=== PATIENT | female | born 1960 | race Caucasian/White ===

== ENCOUNTER 2016-10-10 02:12 | Emergency (ER) | payer BC, OTHER ==
[2016-10-10] MEDS ORDERED: Ketorolac 30 MG/ML SDV IVPUSH ONE (02:29)
[2016-10-10] MEDS ORDERED: Ondansetron 4 MG/2 ML SDV IVPUSH ONE (02:29)
[2016-10-10] MEDS ORDERED: Pantoprazole 40 MG Vial IVPUSH ONE (02:29)
[2016-10-10] MEDS ORDERED: Sodium Chloride 0.9% 1,000 ML IV SCH (02:30)
[2016-10-10] MEDS ORDERED: Ondansetron 4 MG Tab.DIS PO ONE (03:51)
[2016-10-10 04:04] VITALS: BP 122/72
--- NOTE | 2016-10-10 05:11 | ER ---
DATE SEEN: 10/10/2016 CHIEF COMPLAINT: Abdominal pain. HISTORY OF PRESENT ILLNESS: This is a 56-year-old female with abdominal pain since last evening, bloating in nature in the epigastrium, mild to moderate, associated with vomiting. REVIEW OF SYSTEMS: No constipation, fever, or chills. No urinary symptoms. PAST SURGICAL HISTORY: Gallbladder surgery and hysterectomy. She has had a colonoscopy five years ago that was normal. ALLERGIES: Morphine and Orudis. SOCIAL HISTORY: She does drink alcohol, last time drank Saturday. PHYSICAL EXAMINATION: GENERAL: She is nontoxic. VITAL SIGNS: Afebrile. Blood pressure and temperature within reference range. ENT: Negative. CHEST: Clear. ABDOMEN: Soft, mildly distended. Tenderness to the epigastrium. No rebound or rigidity was noted. LABORATORY DATA: Initial white cell count is normal. Hemoglobin is normal. FINAL IMPRESSION: Gastritis, acute. PLAN: 1 L of normal saline. Zofran, ketorolac, and Protonix. She will go home on Zofran 4 mg q.i.d. p.r.n. FOLLOWUP: Follow up in the office tomorrow, return with any worsening symptoms. /[id number] NATHAN/HUGO
== END 2016-10-10 04:00 | disposition home or self-care (01) ==
LOC: FB.ED 02:12
DX: K29.00 Acute gastritis without bleeding (principal); Z90.710 Acquired absence of both cervix and uterus
CPT/HCPCS: 80053; 81001; 82150; 85025; 96361; 96374; 96375; 99284; A9270; C9113; J1885; J2405; J7040

== ENCOUNTER 2017-06-02 19:49 | Emergency (ER) | payer OTHER ==
[2017-06-02] MEDS ORDERED: HYDROmorphone 2 MG/ML SDV IVPUSH ONE (20:26)
[2017-06-02] MEDS ORDERED: Sodium Chloride 0.9% 1,000 ML IV SCH (20:30)
[2017-06-02] MEDS ORDERED: Dextrose 5%-Lactated Ringers 1,000 ML IV SCH (20:30)
[2017-06-02] MEDS ORDERED: Sodium Chloride 0.9% 10 ML Syringe FLUSH PRN (20:31)
[2017-06-02] MEDS ORDERED: Ondansetron 4 MG/2 ML SDV IVPUSH ONE (20:32)
--- NOTE | 2017-06-03 16:46 | ER ---
DATE SEEN: 06/02/2017 TIME SEEN: The patient was seen at 2000 hours. HISTORY OF PRESENT ILLNESS: This 56-year-old woman comes in with history of onset for pain and vomiting. She has vomited 10 times since then. She arrived to the emergency room and was seen around 2000 hours. She was ill last night with symptoms of nausea. At 0100 hours, had increasing abdominal pain and started vomiting at 1600 hours this afternoon. At 0430 hours, she had a headache, was 9/10 in intensity. Initially, it was frontal, but now it is all over her head. She used ice packs with little resolution. Tylenol was minimal help. She was retching at 1600 hours along with this vomiting. Had chills. Denies fever, but has had decreased urine output. Last night, she ate at [employer] in [place], had hamburger with cheese-cheeseburger. did not get sick. She was with other people who ate, did not get sick also. PAST MEDICAL HISTORY: Cholecystectomy, tubal ligation, breast reduction. No history of renal stones. ALLERGIES: Erythromycin, morphine, rofecoxib. CURRENT MEDICATIONS: 1. Bupropion. 2. Citalopram. 3. Lorazepam for anxiety and depression. The patient has obesity with weight 220 pounds. REVIEW OF SYSTEMS: Otherwise negative. PHYSICAL EXAMINATION: VITAL SIGNS: Blood pressure 129/60, heart rate 79, respirations 18, oxygen saturation 100%, temperature is 98.2. GENERAL: The patient is in moderate discomfort. She is on her side. HEENT: Pharynx, mildly semidry oral mucosa. No erythema noted. Sinuses nontender. TMs are normal appearance. NECK: Supple. No thyromegaly or masses in neck. No cervical adenopathy. LUNGS: Clear without rales or rhonchi. HEART: S1, S2. No irregular rate and rhythm. ABDOMEN: Soft. No guarding. No rebound. Bowel sounds increased. No CVA percussion tenderness. PELVIC AND RECTAL: Not performed. EXTREMITIES: Lower extremities without tenderness. No edema. Deep tendon reflexes in upper and lower extremities hypoactive, but present. NEURO: Cranial nerves 2 through 12 intact. Gait appropriate. She feels weak when she stands up. No tachycardia. No postural hypertension with standing. 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 LABORATORY FINDINGS: Suggest a fairly benign course. White count is normal with a neutrophilic differential, 89 PMNs, 7 lymphs, 3 monos, and complete metabolic panel is relatively normal except for calcium is trace low as 8.4, AST 112, ALT 128, alkaline phosphatase 122. Troponin is less than 0.017 and albumin low. Calcium probably low on the basis of the albumin. DIAGNOSES: 1. She has diagnosis of food-induced gastroenteritis-food poisoning, probably Staphylococcal enterotoxin. 2. Obesity. 3. Abdominal pain secondary to dehydration and vomiting. Abdominal pain resolved with hydration in the ER. 4. Neutrophilia secondary to vomiting and spleen-induced margination. Amylase is normal. No signs of pancreatitis. PLAN: The patient received 1000 of normal saline and 500 plus D5 lactated Ringer's. Dismiss. Pain is markedly improved. She received 30 mg Toradol IV and she did not want any narcotics as it makes her goofy. She received 1 mg of Dilaudid IV and Zofran 8 mg IV. The patient dismissed to follow up with doctor in 24 hours if markedly worse. Gradually progress to increase diet as tolerated. Zofran dispensed 4 mg q.6 hours p.r.n. nausea. /[id number] DORA/HUGO
== END 2017-06-02 22:16 | disposition home or self-care (01) ==
LOC: FB.ED 19:49
DX: A05.9 Bacterial foodborne intoxication, unspecified (principal); E86.0 Dehydration; D72.0 Genetic anomalies of leukocytes; Z88.1 Allergy status to other antibiotic agents
CPT/HCPCS: 36415; 80053; 82150; 83605; 84484; 85025; 96361; 96374; 96375; 99284; J1170; J2405; J7040; J7042; J7050; J7030

== ENCOUNTER 2018-09-25 17:33 | Day surgery (SDC) | payer OTHER ==
[2018-09-25] MEDS ORDERED: Glycopyrrolate 0.2 MG/ML 5 ML MDV IV ONE (17:34)
[2018-09-25] MEDS ORDERED: Neostigmine Methylsulfate 10 MG/10 ML MDV IVPUSH ONE (17:34)
[2018-09-25] MEDS ORDERED: Lactated Ringers 1,000 ML IV ONE (17:34)
[2018-09-25] MEDS ORDERED: diphenhydrAMINE 50 MG/ML SDV IVPUSH ONE (17:34)
[2018-09-25] MEDS ORDERED: Ketorolac 30 MG/ML SDV IVPUSH ONE (17:34)
[2018-09-25] MEDS ORDERED: Dexamethasone 4 MG/ML 5 ML MDV IVPUSH ONE (17:34)
[2018-09-25] MEDS ORDERED: fentaNYL 100 MCG/2 ML SDV IV ONE (17:34)
[2018-09-25] MEDS ORDERED: Succinylcholine 200 MG/10 ML MDV IV ONE (17:34)
[2018-09-25] MEDS ORDERED: Propofol 200 MG/20 ML SDV IV ONE (17:34)
[2018-09-25] MEDS ORDERED: cefOXitin 2 GM Vial IVPUSH ONE (17:34)
[2018-09-25] MEDS ORDERED: HYDROmorphone 2 MG/ML SDV IVPUSH ONE (17:34)
[2018-09-25] MEDS ORDERED: Ondansetron 4 MG/2 ML SDV IVPUSH ONE (17:34)
[2018-09-25] MEDS ORDERED: Rocuronium 50 MG/5 ML Vial IVPUSH ONE (17:34)
[2018-09-25] MEDS ORDERED: Midazolam 1 MG/ML 2 ML SDV IV ONE (17:34)
[2018-09-25] MEDS ORDERED: Lactated Ringers 1,000 ML IV SCH (18:00)
--- NOTE | 2018-09-25 18:50 | PCM.PN ---
- General Info Date of Service: 09/25/18 Admission Dx/Problem (Free Text): Patient here for appendectomy - Patient Data Vitals - Most Recent: Last Vital Signs Temp 98.2 F 09/25/18 17:46 Pulse 67 09/25/18 17:46 Resp 16 09/25/18 17:46 BP 119/72 09/25/18 17:46 Pulse Ox 98 09/25/18 17:46 Weight - Most Recent: 222 lb 6.4 oz Med Orders - Current: Current Medications Lactated Ringer's (Ringers, Lactated) 1,000 mls @ 125 mls/hr IV ASDIRECTED [facility] Last Admin: 09/25/18 18:22 Dose: 125 mls/hr - Exam General: Alert, Oriented Lungs: Clear to Auscultation Cardiovascular: Regular Rate, Regular Rhythm GI/Abdominal Exam: Soft, Tender (on right side) Extremities: Non-Tender - Problem List Review Problem List Initiated/Reviewed/Updated: Yes - My Orders Last 24 Hours: My Active Orders 09/25/18 18:00 Lactated Ringers [Ringers, Lactated] 1,000 ml IV ASDIRECTED - Assessment Assessment:: Acute appendicitis - Plan Plan:: Appendectomy
[2018-09-25] MEDS ORDERED: Bupivacaine 0.5%/EPINEPHrine 1:200,000 50 ML MDV ONE (18:58)
[2018-09-25] MEDS ORDERED: Ondansetron 4 MG/2 ML SDV IVPUSH PRN (20:28)
[2018-09-25] MEDS ORDERED: Acetaminophen/HYDROcodone 325-5 MG Tab PO PRN (20:28)
--- NOTE | 2018-09-25 20:28 | PCM.OPNOTE ---
- General Post-Op/Procedure Note Date of Surgery/Procedure: 09/25/18 Operative Procedure(s): Laparoscopic Appendectomy Findings: Distal appendix was swollen and indurated Base of appendix and adjacent cecum normal Pre Op Diagnosis: Acute Appendicitis Post-Op Diagnosis: Same Anesthesia Technique: General ET Tube Primary Surgeon: Jayson Grigsby Pathology: Appendix EBL in mLs: 50 Complications: None Condition: Good
[2018-09-25] MEDS ORDERED: cefOXitin 2 GM in Sodium Chloride 0.9% 50 ML IV SCH (20:30)
[2018-09-25] MEDS ORDERED: LORazepam 0.5 MG Tab PO PRN (20:33)
[2018-09-25] MEDS: Lactated Ringers 1,000 ML IV SCH (22:33)
--- NOTE | 2018-09-25 22:41 | HP ---
ADMISSION DATE: 09/25/2018 HISTORY OF PRESENT ILLNESS: This 58-year-old female has been having symptoms of intermittent abdominal pain for about 2 weeks. This has at times been generalized and associated with some diarrhea. More recently over the last 24 hours, the pain has become more localized on the right side. The patient has had some associated nausea requiring Zofran. The patient has been evaluated for this pain with laboratory studies a few days ago, which were unremarkable, but she also had a CT scan of the abdomen, which showed evidence of slight thickening of her appendix. There were no other specific abnormalities noted at that time. The patient previously felt reasonably well and did undergo a course of oral antibiotics, taking Cipro and Flagyl for approximately a week. She did not feel too bad while taking these, but now that she has stopped taking these, she has noticed a worsening of the pain today. She has felt somewhat warm and possibly had some chills, but she has not had any documented fever. PAST MEDICAL HISTORY: Includes previous surgeries of DULCE-BSO and cholecystectomy along with mandible surgery and she also has had a previous colonoscopy. She carries chronic diagnoses of hyperlipidemia and arthritis. ALLERGIES: She is allergic to morphine, meloxicam, ketoprofen or Orudis, statins, Biaxin, Crestor, and erythromycin. Most of these reactions are diarrhea or GI intolerance. CURRENT MEDICATIONS: Include: 1. Minocycline which she takes daily. 2. Prilosec daily. 3. Wellbutrin. 4. Spironolactone 50 mg a day. 5. Glucophage 500 mg daily. 6. Flonase. 7. Celexa. SOCIAL HISTORY: She does not smoke. FAMILY HISTORY: Notable for Parkinson disease in her father and melanoma in a nephew. IMPRESSION: Persistent abdominal pain, worsening in right side with abnormal appendix on CT scan. PLAN: Laparoscopic appendectomy. INFORMED CONSENT: I have discussed the proposed operative procedure with the patient, reviewed indications, options and risks and she agrees to proceed. [place] [facility] [place][id number] RAO/TRACEL
[2018-09-25] MEDS: HYDROmorphone 2 MG/ML SDV IVPUSH PRN (23:05)
[2018-09-26] MEDS: HYDROmorphone 2 MG/ML SDV IVPUSH PRN ×2 (00:59→03:53)
[2018-09-26] MEDS: cefOXitin 2 GM in Sodium Chloride 0.9% 50 ML IV SCH ×2 (01:00→06:54)
--- NOTE | 2018-09-26 02:25 | OR ---
DATE OF OPERATION: 09/25/2018 SURGEON: Jayson Grigsby MD PREOPERATIVE DIAGNOSIS: Acute appendicitis. POSTOPERATIVE DIAGNOSIS: Acute appendicitis. OPERATION PERFORMED: Laparoscopic appendectomy. INDICATIONS FOR SURGERY: This 58-year-old female has been having abdominal pain for approximately last 2 weeks. There was a possible abnormality of her appendix on CT scan several days ago. She has been tried on a course of oral antibiotics and felt well while on these antibiotics, but since she stopped those yesterday, she has had worsening of her abdominal pain, which is now localized on the right side. FINDINGS: The patient's appendix appeared to be swollen in its distal 2/3. The appendix was also indurated, although there was no sign of perforation or surface exudate. The base of the appendix appeared normal as did the adjacent cecum. The small bowel in this area also appeared normal. The patient did have extensive omental adhesions to the lower midline of the abdomen, which had to be taken down. The surface of her liver and other organs appeared normal as viewed laparoscopically. PROCEDURE IN DETAIL: The patient was taken to the operating room. She was given general endotracheal anesthesia and the abdomen was sterilely prepped and draped. A supraumbilical stab wound incision was made. Through this, a Veress needle was inserted and pneumoperitoneum via this needle to a pressure of 15 mmHg was achieved with carbon dioxide. The Veress needle was replaced with a 5 mm trocar into which the 5 mm variable-angled laparoscopic camera was inserted. There was noted to be extensive omental adhesions in the lower midline and in order to place the lower midline trocar, these had to be taken down. Another 5 mm trocar was placed in the right lower quadrant and then utilizing these trocars and blunt dissection, the omental adhesions to the anterior abdominal wall were carefully taken down until the lower midline was exposed. Then, under direct visualization, a 12 mm trocar was placed in the suprapubic midline. All trocar sites were infiltrated with Marcaine prior to incision. Intra-abdominal inspection was carried out and the appendix was identified. It did appear abnormal and was removed. A small window was made in the mesoappendix adjacent to the cecum and then utilizing this window, the appendiceal cecal junction was fired across with an Endo-CHLOE using 2.5 mm staple length. This divided the appendix from the cecum and the cecal staple line was carefully inspected and found to be of good quality. Two additional firings of the Endo-CHLOE with 2.5 mm staple length was then carried out across the mesoappendix completely freeing the appendix. The appendix was then placed into an Endo retrieval bag and extracted through the largest trocar site. Reinspection of the operative region was carried out. Copious irrigation was performed. Examination did not show any sign of complication and no other abnormalities were noted in the organs as viewed. After the operative region and pelvis had been thoroughly irrigated, and with no sign of any bleeding or other complication, the trocars were removed under direct visualization and the pneumoperitoneum was evacuated. The fascia of the largest trocar site was then closed with a 0 Vicryl. The wounds were irrigated with Betadine and saline solution. Skin incisions were approximated with interrupted 4-0 Vicryl in a subcuticular stitch. Steri-Strips and benzoin were applied followed by antibiotic ointment and sterile dressings. The patient was awakened, extubated, and taken from the operating room in satisfactory condition. ESTIMATED BLOOD LOSS: 50 mL. COMPLICATIONS: None. PROGNOSIS: Good. /[id number] RAO/HUGO
[2018-09-26] MEDS: Lactated Ringers 1,000 ML IV SCH (06:53)
[2018-09-26] MEDS: Acetaminophen/HYDROcodone 325-5 MG Tab PO PRN ×2 (06:59→11:29)
--- NOTE | 2018-09-26 07:44 | PCM.SURGPN ---
- General Info Date of Service: 09/26/18 Date of Surgery/Procedure: 09/25/18 POD#: 1 Post-Op Diagnosis: Acute Appendicitis Functional Status: Reports: Pain Controlled (Pre op pain now gone. Feels much better then before surgery) - Review of Systems Pulmonary: Reports: No Symptoms Gastrointestinal: Reports: Flatus. Denies: Diarrhea, Nausea, Vomiting Genitourinary: Reports: No Symptoms Musculoskeletal: Denies: Leg Pain - Patient Data Vitals - Most Recent: Last Vital Signs Temp 97.9 F 09/26/18 04:00 Pulse 66 09/26/18 04:00 Resp 16 09/26/18 04:00 BP 107/64 09/26/18 04:00 Pulse Ox 97 09/26/18 04:00 Weight - Most Recent: 222 lb 6.4 oz I&O - Last 24 Hours: Intake & Output 09/25/18 09/26/18 09/26/18 22:59 06:59 14:59 Output Total 200 Balance -200 Med Orders - Current: Current Medications Hydrocodone Bitart/Acetaminophen ([place] 325-5 Mg) 1 tab PO Q4H PRN PRN Reason: Pain (mild 1-3) Last Admin: 09/26/18 06:59 Dose: 1 tab Hydrocodone Bitart/Acetaminophen ([place] 325-5 Mg) 2 tab PO Q4H PRN PRN Reason: Pain (moderate 4-6) Bupropion HCl (Wellbutrin Sr) 150 mg PO DAILY [facility] Hydromorphone HCl (Dilaudid) 1 mg IVPUSH Q1H PRN PRN Reason: Pain (moderate 4-6) Last Admin: 09/26/18 03:53 Dose: 1 mg Lactated Ringer's (Ringers, Lactated) 1,000 mls @ 125 mls/hr IV ASDIRECTED [place] Last Admin: 09/26/18 06:53 Dose: 125 mls/hr Cefoxitin Sodium 2 gm/ Sodium (Chloride) 50 mls @ 100 mls/hr IV Q6H [place] Stop: 09/26/18 13:29 Last Admin: 09/26/18 06:54 Dose: 100 mls/hr Lorazepam (Ativan) 0.5 mg PO TID PRN PRN Reason: Anxiety Ondansetron HCl (Zofran) 4 mg IVPUSH Q6H PRN PRN Reason: Nausea/Vomiting Spironolactone (Aldactone) 50 mg PO DAILY [facility] Discontinued Medications Bupivacaine HCl/Epinephrine Bitart (Marcaine 0.5%/Epinephrine 1:200,000) 10 ml .XX .STK-MED ONE Stop: 09/25/18 18:59 Last Admin: 09/25/18 18:58 Dose: 10 ml Lactated Ringer's (Ringers, Lactated) 1,000 mls @ 125 mls/hr IV ASDIRECTED [facility] Last Admin: 09/25/18 18:22 Dose: 125 mls/hr Cefoxitin Sodium 2 gm/ Sodium (Chloride) 50 mls @ 100 mls/hr IV Q6H [facility] Stop: 09/26/18 08:59 - Exam Wound/Incisions: Healing Well, Dressing Dry and Intact. No: Erythema General: Alert, Oriented Lungs: Normal Respiratory Effort GI/Abdominal Exam: Soft, Tender (mild near incisions but no other tenderness) Extremities: Normal Inspection. No: Leg Pain - Problem List Review Problem List Initiated/Reviewed/Updated: Yes - My Orders Last 24 Hours: Active Orders 24 hr Category Date Time Status Patient Status [ADT] Routine ADT 09/25/18 20:28 Active Ambulate [RC] ASDIRECTED Care 09/25/18 20:28 Active Antiembolic Devices [RC] .Routine Care 09/25/18 20:32 Active Intake and Output [RC] 06,14,22 Care 09/25/18 20:30 Active Oxygen Therapy [RC] PRN Care 09/25/18 20:28 Active RT Incentive Spirometry [RC] Q1HWA Care 09/25/18 20:28 Active VTE/DVT Education [RC] Click to Edit Care 09/25/18 20:32 Active Vital Signs [RC] PER UNIT ROUTINE Care 09/25/18 20:28 Active Clear Liquid Diet [DIET] Diet 09/26/18 Breakfast Ordered Full Liquid Diet [DIET] Diet 09/26/18 Lunch Ordered Acetaminophen/HYDROcodone [[place] 325-5 MG] Med 09/25/18 20:28 Active 1 tab PO Q4H PRN Acetaminophen/HYDROcodone [[place] 325-5 MG] Med 09/25/18 20:28 Active 2 tab PO Q4H PRN HYDROmorphone [Dilaudid] Med 09/25/18 20:28 Active 1 mg IVPUSH Q1H PRN LORazepam [Ativan] Med 09/25/18 20:33 Active 0.5 mg PO TID PRN Lactated Ringers [Ringers, Lactated] 1,000 ml Med 09/25/18 20:30 Active IV ASDIRECTED Ondansetron [Zofran] Med 09/25/18 20:28 Active 4 mg IVPUSH Q6H PRN Spironolactone [Aldactone] Med 09/26/18 09:00 Active 50 mg PO DAILY buPROPion [Wellbutrin SR] Med 09/26/18 09:00 Active 150 mg PO DAILY cefOXitin [Mefoxin] 2 gm Med 09/26/18 01:00 Active Sodium Chloride 0.9% [Normal Saline] 50 ml IV Q6H DVT/VTE Prophylaxis Reflex [OM.PC] Per Unit Routine Oth 09/25/18 20:32 Ordered Sequential Compression Device [OM.PC] Routine Oth 09/25/18 20:28 Ordered Resuscitation Status Routine Resus Stat 09/25/18 20:28 Ordered Medication Orders Hydrocodone Bitart/Acetaminophen ([place] 325-5 Mg) 1 tab PO Q4H PRN PRN Reason: Pain (mild 1-3) Last Admin: 09/26/18 06:59 Dose: 1 tab Hydrocodone Bitart/Acetaminophen ([place] 325-5 Mg) 2 tab PO Q4H PRN PRN Reason: Pain (moderate 4-6) Bupropion HCl (Wellbutrin Sr) 150 mg PO DAILY [facility] Hydromorphone HCl (Dilaudid) 1 mg IVPUSH Q1H PRN PRN Reason: Pain (moderate 4-6) Last Admin: 09/26/18 03:53 Dose: 1 mg Admin: 09/26/18 00:59 Dose: 1 mg Admin: 09/25/18 23:05 Dose: 1 mg Lactated Ringer's (Ringers, Lactated) 1,000 mls @ 125 mls/hr IV ASDIRECTED [place] Last Admin: 09/26/18 06:53 Dose: 125 mls/hr Infusion: 09/26/18 06:33 Dose: 125 mls/hr Admin: 09/25/18 22:33 Dose: 125 mls/hr Cefoxitin Sodium 2 gm/ Sodium (Chloride) 50 mls @ 100 mls/hr IV Q6H [facility] Stop: 09/26/18 13:29 Last Admin: 09/26/18 06:54 Dose: 100 mls/hr Admin: 09/26/18 01:00 Dose: 100 mls/hr Lorazepam (Ativan) 0.5 mg PO TID PRN PRN Reason: Anxiety Ondansetron HCl (Zofran) 4 mg IVPUSH Q6H PRN PRN Reason: Nausea/Vomiting Spironolactone (Aldactone) 50 mg PO DAILY [facility] - Assessment Assessment (Free Text/Narrative):: POD #1 Appendectomy doing well - pre op symptoms now gone - Plan Plan (Free Text/Narrative):: Will advance diet for lunch and if doing well then will discharge
[2018-09-26] MEDS ORDERED: buPROPion 150 MG Tab.SR PO SCH (09:00)
[2018-09-26] MEDS ORDERED: Spironolactone 50 MG Tab PO SCH (09:00)
[2018-09-26] MEDS ORDERED: buPROPion 150 MG Tab.ER PO SCH (11:28)
[2018-09-26] MEDS ORDERED: cefOXitin 2 GM Vial IVPUSH SCH (13:00)
== END 2018-09-26 15:30 | disposition home or self-care (01) ==
LOC: FB.SDS 17:33 → FB.MS 17:35 → FB.SDS 09-26 15:30
PROVIDERS: ATTEND Surgery
DX: D12.1 Benign neoplasm of appendix (principal); K66.0 Peritoneal adhesions (postprocedural) (postinfection); E78.5 Hyperlipidemia, unspecified; M19.90 Unspecified osteoarthritis, unspecified site; Z88.5 Allergy status to narcotic agent; Z88.6 Allergy status to analgesic agent; Z88.1 Allergy status to other antibiotic agents; Z88.8 Allergy status to other drugs, medicaments and biological substances; Z79.2 Long term (current) use of antibiotics; Z79.899 Other long term (current) drug therapy
CPT/HCPCS: 88304; 94150; A9270-GY; J0330; J0694; J1100; J1170; J1200; J1885; J2250; J2405; J2704; J2710; J3010; J3490; J7050; J7120

== ENCOUNTER 2019-05-11 18:01 | Observation (INO) | payer MEDICAID, OTHER ==
[2019-05-11] MEDS ORDERED: Sodium Chloride 0.9% 1,000 ML IV ONE (18:32)
[2019-05-11] MEDS ORDERED: Sodium Chloride 0.9% 10 ML Syringe FLUSH PRN (18:32)
--- NOTE | 2019-05-11 18:34 | EDM.PDOC ---
ED HPI GENERAL MEDICAL PROBLEM - General Chief Complaint: Abdominal Pain Stated Complaint: ABD PAIN Time Seen by Provider: 05/11/19 18:20 Source of Information: Reports: Patient History Limitations: Reports: No Limitations - History of Present Illness INITIAL COMMENTS - FREE TEXT/NARRATIVE: 58-year-old female who was brought to the emergency department from the walk-in clinic secondary to abdominal pain and profuse diarrhea. She reports that at 3 AM today she awakened with a bloated type pain in her upper abdomen aggressively get worse over time and then moved to her right abdomen and became associated at 7 AM with diarrhea. There was no blood in the stool. The stool is liquid and ultimately large amounts. It has been associated with nausea but no vomiting today. She has had little appetite and has had poor by mouth intake. She reports that anytime she has by mouth intake she has a worsening of her pain and a worsening of her nausea. He has progressively worsened through the day and when she presented to the walk-in clinic it was a 10/10. It is now a crampy type pain waxing and waning. She was seen initially in the walk-in clinic and had a sting performed which was all unremarkable and she was given Toradol IM and Zofran for her pain and nausea with good effect. Her pain is currently a 3/10. She is sent over to the emergency department after the nurse practitioner called and talked to Dr. Grigsby and he recommended that she come over to the emergency department for IV hydration and CT scan of her abdomen and pelvis. The patient just had a colonoscopy on 05/08/[address] Grigsby. She had 2 small colon polyps that were on the left side of the colon and were removed. The right side of her colon including the area where her appendectomy was performed was normal in appearance and had no intervention other than the colonoscopy. The patient force that her nausea has pretty much abated now. She feels dry mouth and she feels dehydrated. There are no other associated signs or symptoms. There are no other modifying factors. Onset: Today (3 AM) Duration: Getting Worse Location: Reports: Abdomen Quality: Reports: Other (Cramping and sharp) Severity: Severe Improves with: Reports: None Worsens with: Reports: Other (Eating and drinking) Context: Reports: Other (As above) Associated Symptoms: Reports: Fever/Chills (Chills all through the day but no measured fever), Nausea/Vomiting Treatments TELEGRAPH MESSENGER: Reports: Other (see below) (Toradol and Zofran was given in the walk-in clinic) - Related Data Allergies Allergy/AdvReac Type Severity Reaction Status Date / Time erythromycin base Allergy Hives Verified 02/26/18 21:33 morphine Allergy Hives Verified 09/17/18 09:07 rofecoxib [From Vioxx] Allergy Diarrhea Verified 02/26/18 21:33 Home Meds: Home Meds LORazepam [Ativan] 0.5 mg PO TID PRN 10/10/16 [History] Chromium Picolinate 200 mcg PO DAILY 02/26/18 [History] Minocycline [Minocin] 50 mg PO BID 02/26/18 [History] Spironolactone 50 mg PO DAILY 02/26/18 [History] metFORMIN [Glucophage] 1,000 mg PO BEDTIME 02/26/18 [History] Acetaminophen/HYDROcodone [[place] 325-5 MG] 1 - 2 tab PO Q4H PRN #20 tab [Rx] buPROPion [buPROPion XL] 150 mg PO DAILY 09/26/18 [History] Past Medical History HEENT History: Reports: Impaired Vision Cardiovascular History: Reports: Blood Clots/VTE/DVT (But no chronic anticoagulation) Other Cardiovascular History: blood clot L) calf. 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) - Past Surgical History GI Surgical History: Reports: Appendectomy, Cholecystectomy, Colonoscopy Female Surgical History: Reports: Hysterectomy Social & Family History - Tobacco Use Smoking Status *Q: Unknown Ever Smoked (Nonsmoker) - Caffeine Use Caffeine Use: Reports: Coffee, Soda Other Caffeine Use: 1 coffee/day - Alcohol Use Alcohol Use History: Yes Alcohol Use Frequency: Socially - Living Situation & Occupation Living situation: Reports: Occupation: Employed (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[place]) ED ROS GENERAL - Review of Systems Review Of Systems: See Below Constitutional: Reports: Chills, Malaise, Fatigue HEENT: Reports: Other (Drymouthed) Respiratory: Reports: No Symptoms Cardiovascular: Reports: No Symptoms GI/Abdominal: Reports: Abdominal Pain, Diarrhea, Nausea : Reports: No Symptoms (She has had decreased urine output today) Musculoskeletal: Reports: No Symptoms Skin: Reports: No Symptoms Neurological: Reports: No Symptoms Hematologic/Lymphatic: Reports: No Symptoms Immunologic: Reports: No Symptoms ED EXAM, GI/ABD - Physical Exam Exam: See Below Exam Limited By: No Limitations General Appearance: Alert, Mild Distress, Obese Eyes: Bilateral: Normal Appearance, EOMI Ears: Normal External Exam, Hearing Grossly Normal Nose: Normal Inspection, Normal Mucosa, No Blood Throat/Mouth: Normal Voice, No Airway Compromise, Other (Dry mucous membranes) Head: Atraumatic, Normocephalic Neck: Normal Inspection, Supple, Non-Tender, Full Range of Motion Respiratory/Chest: No Respiratory Distress, Lungs Clear, Normal Breath Sounds, No Accessory Muscle Use, Chest Non-Tender Cardiovascular: Normal Peripheral Pulses, Regular Rate, Rhythm, No Murmur GI/Abdominal Exam: Soft, No Mass, Tender (On the right side.), Abnormal Bowel Sounds (Somewhat hyperactive bowel sounds). No: Guarding, Rebound Back Exam: Normal Inspection, Full Range of Motion Extremities: Normal Inspection, Normal Range of Motion, Non-Tender, No Pedal Edema, Normal Capillary Refill Neurological: Alert, Oriented, CN II-XII Intact, Normal Cognition, No Motor/ Sensory Deficits Skin Exam: Warm, Dry, Intact, Normal Color, No Rash Course - Vital Signs Last Recorded V/S: Last Vital Signs Temp 36.8 C 05/11/19 18:01 Pulse 67 05/11/19 18:01 Resp 18 05/11/19 18:01 BP 118/52 L 05/11/19 18:01 Pulse Ox 99 05/11/19 18:01 - Orders/Labs/Meds Orders: Active Orders 24 hr Category Date Time Status Admission Status [Patient Status] [ADT] Routine ADT 05/11/19 20:00 Active Patient Status Manage Transfer [TRANSFER] Routine ADT 05/11/19 20:01 Ordered Bedrest Bathroom Privileges [RC] ASDIRECTED Care 05/11/19 20:04 Active Height and Weight [RC] DAILY Care 05/11/19 20:04 Active Intake and Output [RC] QSHIFT Care 05/11/19 20:05 Active Notify Provider Consults [RC] ASDIRECTED Care 05/11/19 20:09 Active Oxygen Therapy [RC] PRN Care 05/11/19 20:04 Active VTE/DVT Education [RC] Per Unit Routine Care 05/11/19 20:04 Active Vital Signs [RC] Q4H Care 05/11/19 20:04 Active Consult to Physician [CONS] Routine Cons 05/11/19 20:04 Ordered Clear Liquid Diet [DIET] Diet 05/11/19 Dinner Ordered Abdomen Pelvis w Cont [CT] Stat Exams 05/11/19 18:33 Taken CBC WITH AUTO DIFF [HEME] AM Lab 05/12/19 05:11 Ordered COMPREHENSIVE METABOLIC PN,CMP [CHEM] AM Lab 05/12/19 05:11 Ordered Ondansetron [Zofran] Med 05/11/19 20:04 Active 4 mg IV Q6H PRN Sodium Chloride 0.9% [Normal Saline] 1,000 ml Med 05/11/19 20:15 Active IV ASDIRECTED Sodium Chloride 0.9% [Saline Flush] Med 05/11/19 18:32 Active 10 ml FLUSH ASDIRECTED PRN Peripheral IV Insertion Adult [OM.PC] Routine Oth 05/11/19 18:32 Ordered Resuscitation Status Routine Resus Stat 05/11/19 20:04 Ordered Medication Orders Sodium Chloride (Normal Saline) 1,000 mls @ 150 mls/hr IV ASDIRECTED WINSTON Ondansetron HCl (Zofran) 4 mg IV Q6H PRN PRN Reason: Nausea/Vomiting Sodium Chloride (Saline Flush) 10 ml FLUSH ASDIRECTED PRN PRN Reason: Keep Vein Open Last Admin: 05/11/19 19:07 Dose: 10 ml Meds: Medications Generic Name Dose Route Start Last Admin Trade Name Freq PRN Reason Stop Dose Admin Sodium Chloride 1,000 mls @ 150 mls/hr 05/11/19 20:15 Normal Saline IV ASDIRECTED WINSTON Ondansetron HCl 4 mg 05/11/19 20:04 Zofran IV Q6H PRN Nausea/Vomiting Sodium Chloride 10 ml 05/11/19 18:32 05/11/19 19:07 Saline Flush FLUSH 10 ml ASDIRECTED PRN Administration Keep Vein Open Discontinued Medications Generic Name Dose Route Start Last Admin Trade Name Freq PRN Reason Stop Dose Admin Sodium Chloride 1,000 mls @ 999 mls/hr 05/11/19 18:32 05/11/19 19:05 Normal Saline IV 05/11/19 19:32 999 mls/hr .BOLUS ONE Administration Iopamidol 100 ml 05/11/19 18:45 05/11/19 18:50 Isovue-370 (76%) IV 05/11/19 18:46 94 ml ONETIME ONE Administration - Re-Assessments/Exams Free Text/Narrative Re-Assessment/Exam: 05/11/19 19:55: The patient CT scan showed multiple air-fluid levels throughout the colon consistent with gastroenteritis versus ileus. There was no evidence of obstruction. There was no free air. She has been vitally stable while in the emergency department and she has had no further diarrhea. Her pain is much improved and her nausea is resolved. I discussed the patient's CT scan results with Dr. Grigsby and he does not feel that this represents a competition from a colonoscopy on 05/08/2019 but he does feel that admission is with IV hydration further observation for abdominal pain would be warranted. He will consult on the patient and see her in the morning. 05/11/19 20:00: I discussed also the CT scan with the patient, her probable diagnosis and the recommendation of admission for IV hydration and further observation and she is in agreement with this plan. I will place admission orders and the patient will be to Dr. Jones at 7 AM on 05/12/2019. Departure - Departure Time of Disposition: 20:05 Disposition: Refer to Observation Condition: Fair (Stable) Clinical Impression: Moderate dehydration Abdominal pain Qualifiers: Abdominal location: unspecified location Qualified Code(s): R10.9 - Unspecified abdominal pain Diarrhea Qualifiers: Diarrhea type: unspecified type Qualified Code(s): R19.7 - Diarrhea, unspecified - Discharge Information Referrals: Chana Menon, CARDIOPULMONARY SUPERVISOR [Primary Care Provider] - Forms: ED Department Discharge Sepsis Event Note - Focused Exam Vital Signs: Vital Signs Temp Pulse Resp BP Pulse Ox 05/11/19 18:01 36.8 C 67 18 118/52 L 99 Date Exam was Performed: 05/11/19 Time Exam was Performed: 20:17 - My Orders Last 24 Hours: My Active Orders 05/11/19 18:32 Sodium Chloride 0.9% [Saline Flush] 10 ml FLUSH ASDIRECTED PRN Peripheral IV Insertion Adult [OM.PC] Routine 05/11/19 18:33 Abdomen Pelvis w Cont [CT] Stat 05/11/19 20:00 Admission Status [Patient Status] [ADT] Routine 05/11/19 20:01 Patient Status Manage Transfer [TRANSFER] Routine 05/11/19 20:04 Bedrest Bathroom Privileges [RC] ASDIRECTED Height and Weight [RC] DAILY Oxygen Therapy [RC] PRN VTE/DVT Education [RC] Per Unit Routine Vital Signs [RC] Q4H Consult to Physician [CONS] Routine Ondansetron [Zofran] 4 mg IV Q6H PRN Resuscitation Status Routine 05/11/19 20:05 Intake and Output [RC] QSHIFT 05/11/19 20:09 Notify Provider Consults [RC] ASDIRECTED 05/11/19 20:15 Sodium Chloride 0.9% [Normal Saline] 1,000 ml IV ASDIRECTED 05/11/19 Dinner Clear Liquid Diet [DIET] 05/12/19 05:11 CBC WITH AUTO DIFF [HEME] AM COMPREHENSIVE METABOLIC PN,CMP [CHEM] AM - Assessment/Plan Last 24 Hours: My Active Orders 05/11/19 18:32 Sodium Chloride 0.9% [Saline Flush] 10 ml FLUSH ASDIRECTED PRN Peripheral IV Insertion Adult [OM.PC] Routine 05/11/19 18:33 Abdomen Pelvis w Cont [CT] Stat 05/11/19 20:00 Admission Status [Patient Status] [ADT] Routine 05/11/19 20:01 Patient Status Manage Transfer [TRANSFER] Routine 05/11/19 20:04 Bedrest Bathroom Privileges [RC] ASDIRECTED Height and Weight [RC] DAILY Oxygen Therapy [RC] PRN VTE/DVT Education [RC] Per Unit Routine Vital Signs [RC] Q4H Consult to Physician [CONS] Routine Ondansetron [Zofran] 4 mg IV Q6H PRN Resuscitation Status Routine 05/11/19 20:05 Intake and Output [RC] QSHIFT 05/11/19 20:09 Notify Provider Consults [RC] ASDIRECTED 05/11/19 20:15 Sodium Chloride 0.9% [Normal Saline] 1,000 ml IV ASDIRECTED 05/11/19 Dinner Clear Liquid Diet [DIET] 05/12/19 05:11 CBC WITH AUTO DIFF [HEME] AM COMPREHENSIVE METABOLIC PN,CMP [CHEM] AM
[2019-05-11] MEDS ORDERED: Iopamidol 755 Mg/ML 100 ML Bottle IV ONE (18:45)
[2019-05-11] MEDS: Ondansetron 4 MG/2 ML SDV IV PRN (20:25)
[2019-05-11] MEDS: Sodium Chloride 0.9% 1,000 ML IV SCH (20:30)
[2019-05-11] MEDS: HYDROmorphone 2 MG/ML SDV IVPUSH PRN (21:33)
[2019-05-12] MEDS: HYDROmorphone 2 MG/ML SDV IVPUSH PRN ×2 (01:35→06:35)
[2019-05-12] MEDS: Ondansetron 4 MG/2 ML SDV IV PRN (01:45)
[2019-05-12] MEDS: Sodium Chloride 0.9% 1,000 ML IV SCH ×2 (02:55→08:53)
--- NOTE | 2019-05-12 05:12 | CT ---
INDICATION: Abdominal pain with vomiting. Right lower quadrant pain - ascites. No fever. CT ABDOMEN AND PELVIS WITH IV CONTRAST: Spiral 3.75 mm axial sections were obtained through the abdomen and pelvis with 94 mL Isovue 370 at 100 second delay at 2 cc/second, 05/11/19, and compared with 09/17/18. Total exam DLP was 1512.67 mGy-cm. Low lung ricardo and pleural spaces visualized appear normal. The heart is normal in size. No pericardial effusion was seen. The gallbladder is absent with clips at the cystic duct compatible with history of cholecystectomy. Clips are noted in the bed of the appendix with interval resection of the appendix noted. No recurrent lesion is seen in the bed of the appendix. A tiny low density lesion is again noted in the lower pole of the left kidney - lateral cortex, possibly representing a tiny angiomyolipoma. The kidneys, adrenals, liver, spleen, and pancreas appear normal, with the exception of a small low density lesion in the head of the pancreas, unchanged from the previous study, and likely representing a tiny cyst. Since no change in this finding is present since 09/17/18, this likely represents a benign structure. The common bile duct was not enlarged. No retroperitoneal mass was seen. Minimal retroperitoneal lymphadenopathy is noted as previously, which is nonspecific. No evidence of bowel obstruction or free air was seen; however, there are air- fluid levels in the colon, both ascending and rectal area, which may represent a process such as gastroenteritis. A mechanically obstructive process is felt to be much less likely. The uterus is absent, compare with history of its removal. A mild dextroconvex scoliosis of the upper lumbar spine is noted. Degenerative disk disease is noted at L2-3 with vacuum disk phenomenon. Hypertrophic degenerative changes are noted at the thoracolumbar spine up to the level of L4 with hypertrophic spurring off vertebral bodies anteriorly as well as laterally at L3-4. IMPRESSION: 1. No evidence of metastatic disease was identified with special attention to the bed of the appendix in the right flank - lower quadrant - post appendectomy for neoplasia. 2. Air-fluid level is noted in the colon raising question of gastroenteritis - correlate clinically. 3. Degenerative changes and disk disease with scoliosis lumbar spine. 4. 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 5. Post hysterectomy. 6. Post cholecystectomy. Report was called to Dr. Kim at 1945 hours. [facility]
[2019-05-12] MEDS ORDERED: Acetaminophen 500 MG Tab PO PRN (08:57)
[2019-05-12] MEDS ORDERED: Citalopram 10 MG Tab PO SCH (09:00)
[2019-05-12] MEDS ORDERED: PHENTERMINE HCL 37.5 MG PO SCH (09:00)
[2019-05-12] MEDS ORDERED: Spironolactone 50 MG Tab PO SCH (09:00)
[2019-05-12] MEDS ORDERED: buPROPion 150 MG Tab.ER PO SCH (09:00)
[2019-05-12] MEDS ORDERED: Pantoprazole 40 MG Tab.CR PO SCH (09:00)
[2019-05-12] MEDS ORDERED: CHROMIUM PICOLINATE 200 MCG PO SCH (09:00)
[2019-05-12] MEDS ORDERED: LORazepam 0.5 MG Tab PO PRN (09:15)
[2019-05-12] MEDS ORDERED: Diclofenac Sodium 1% Gel 100 GM Tube TOP PRN (09:30)
[2019-05-12] MEDS ORDERED: Ondansetron 4 MG Tab.DIS PO PRN ×2 (09:31→13:54)
--- NOTE | 2019-05-12 10:15 | HP ---
ADMISSION DATE: 05/11/2019 CHIEF COMPLAINT: Nausea, vomiting, abdominal pain, and diarrhea. HISTORY OF PRESENT ILLNESS: Ms. 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 The patient underwent colonoscopy routinely 2 days ago. At 3 a.m. yesterday morning, she awoke with upper abdominal pain, bloating, nausea, vomiting, and developed subsequent profuse watery diarrhea. This progressed throughout the day, increasing in severity with worsening pain until she came into the emergency room, was evaluated and was admitted. CT of the abdomen showed no sign of perforation, mass, but signs were consistent with gastroenteritis. The patient was placed on IV antibiotic fluids in the ER and was admitted to observation care at [facility]. The patient states that she is feeling slightly better than when she arrived at the emergency room. She has not had hematochezia or melena. She has had no prior episodes like this. She has not had any travel or had any known exposure to people with a gastroenteritis illness. She has not eaten any food that she is significantly suspicious of. PAST MEDICAL HISTORY: Obesity, taking Metformin for weight loss, remote history of DVT, anxiety and depression, and rosacea. She is status post removal of the appendix for a mucinous cystadenoma, cholecystectomy, hysterectomy, and she has had colonoscopy that was apparently negative. MEDICATIONS: 1. Lorazepam 0.5 mg t.i.d. p.r.n. 2. Chromium picolinate 200 mcg daily. 3. Minocycline 50 mg b.i.d. 4. Aldactone 50 mg daily. 5. Metformin 1000 mg at bedtime. 6. Bupropion 150 mg daily. 7. Phentermine 37.5 mg daily. 8. Omeprazole 20 mg daily. 9. Diclofenac topical gel q.i.d. p.r.n. ALLERGIES: Erythromycin base, morphine, and rofecoxib all listed. HABITS: Nonsmoker. Occasional alcohol. One cup coffee per day. FAMILY AND SOCIAL HISTORY: The patient is , lives her in [place]. 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 REVIEW OF SYSTEMS: GENERAL: No seizure, syncope, or recent significant weight change. SKIN: Negative for rash. HEENT: No recent changes in hearing or vision. CHEST: No chest pain or palpitations. No cough. No dyspnea. ABDOMEN: She reports the abdominal pain as above with vomiting and diarrhea. No hematochezia or melena. GENITOURINARY: No hematuria or UTI symptoms. MUSCULOSKELETAL: No joint inflammation or skin rash. PHYSICAL EXAMINATION: GENERAL: She is alert, currently comfortable lying in bed. VITAL SIGNS: Blood pressure 100/52, pulse 58 and regular, respirations 16, O2 saturation 100% on room air, temperature 98.2, and weight 214 pounds. SKIN: Anicteric, warm, and dry without rash. HEENT: Shows her mouth to be dry. LUNGS: Clear to the bases. HEART: Regular without murmur, rub, or gallop. ABDOMEN: Active bowel sounds. Soft. No point tenderness. No mass, guarding, or rebound. EXTREMITIES: Show no edema. LABORATORY DATA: White count 5200, hemoglobin 14. Electrolytes normal. Creatinine 0.8. AST 131, ALT 112, alkaline phosphatase 126. ASSESSMENT: This is a 58-year-old woman with: 1. Acute abdominal pain, nausea, vomiting, and diarrhea consistent with gastroenteritis. 2. Obesity. 3. Anxiety and depression. 4. Gastroesophageal reflux disease. PLAN: She is receiving IV fluid currently at 150 mL per hour and antinausea medications with ondansetron. She has tolerated clear liquid diet this morning. Last night, after Jell-O, she got significant recurrent cramping. Anticipate steady improvement and discharge to home within 24 hours. /[id number] [address] MALLORY/HUGO THOMAS
[2019-05-12] MEDS ORDERED: Ondansetron 8 MG Tab.DIS PO PRN (13:42)
[2019-05-12] MEDS ORDERED: Ondansetron 8 MG Tab.DIS PO SCH (14:00)
== END 2019-05-12 14:45 | disposition home or self-care (01) ==
LOC: FB.ED 18:01 → FB.MS 20:16
PROVIDERS: ADMIT Emergency Medicine; ATTEND Family Medicine
DX: R10.10 Upper abdominal pain, unspecified (principal); R11.2 Nausea with vomiting, unspecified; R19.7 Diarrhea, unspecified; K21.9 Gastro-esophageal reflux disease without esophagitis; F32.9 Major depressive disorder, single episode, unspecified; F41.9 Anxiety disorder, unspecified; M19.90 Unspecified osteoarthritis, unspecified site; E66.9 Obesity, unspecified; Z68.35 Body mass index [BMI] 35.0-35.9, adult; Z88.1 Allergy status to other antibiotic agents; Z88.5 Allergy status to narcotic agent; Z88.8 Allergy status to other drugs, medicaments and biological substances; Z79.899 Other long term (current) drug therapy; Z86.718 Personal history of other venous thrombosis and embolism
CPT/HCPCS: 36415; 74177; 80053; 85025; 96360; 99285-25; A9270-GY; J1170; J2405; J7030; Q9967